=== PATIENT | female | born 1955 | race Caucasian/White ===

== ENCOUNTER 2022-08-03 17:36 | Emergency (ER) | payer OTHER ==
--- OUTSIDE RECORDS SUMMARY | 2022-08-03 17:40 | XMS REPORT | Continuity of Care Document ---
:1955 Author Organization [facility] t Address [address] [place] [address] [address] [place] [address] Care Team Providers Name Role Phone Nabil Vogt Attending Clinician Unavailable Veda Maxwell Attending Clinician Unavailable SERGIO DAI Attending Clinician Unavailable Sergio Dai MD Attending Clinician Maureen Montoya MD Attending Clinician Subhash Harding MD Attending Clinician SERGIO DAI Admitting Clinician Unavailable Payers Payer Name Policy Type Policy Number Effective Date Expiration Date Mark leigh AETNA 53 [id number] 2017 [facility] 00:00:00 [facility] MEDICARE A B [id number] 2020 00:00:00 AETNA HMO POS [id number] 2020 QPOS 00:00:00 AETNA 53 [id number] 2021 [facility] 00:00:00 [facility] AETNA 53 [id number] 2017 [facility] 00:00:00 [facility] Problems Condition Condition Condition Status Onset Resolution Last Treating Co mments Source Name Details Category Date Date Treatment Clinician Date Renal mass Renal mass Disease Active [facility] 03-08 kes 00:00: Medical 00 [place] [id number] GERD Problem Common without Spirit esophagiti - [facility] [id number] S/P Problem Common laparoscop Spirit ic surgery - [facility] [id number] Daytime Problem Comm on 00 somnolence [facility] [id number] Snoring Problem Common [facility] [id number] Fatigue, Problem Commo n unspecifie Spirit d type [facility] [id number] History of Problem Co mmon basal cell [facility] carcinoma - [facility] (B[facility]) of [facility] Jazz-Staci Jazz-Staci Problem C ommon latter's latter's Spirit disease of disease of - [facility] left lower left lower [facility] [id number] [place] [address] left knee [facility] Swelling Swelling Problem Commo n [facility] Gastroesop Reflux Problem Commo n hageal Spirit reflux - [facility] disease [facility] [id number] Pain in Problem Common right knee [facility] [id number] Low back Problem Comm on pain [facility] Seasonal Seasonal Problem Commo n allergy allergies [facility] [id number] [place] Problem Com mon latter's Spirit disease of - [facility] left lower [facility] [id number] Morbid Problem Common obesity [facility] [id number] Body mass Problem Com mon index [facility] (BMI) [facility] 45.0-49.9[facility] Anxiety Anxiety Problem Common [facility] [id number] Tinnitus Problem Com mon 102 of both [facility] ears [facility] [id number] Neck pain Problem Comm on [facility] [id number] Dizziness Problem Com mon [facility] Allergic Allergic Problem Commo n rhinitis rhinitis, Spiri t unspecifie - [facility] d [facility] y, Medical unspecifie Center d trigger Sinus Sinus Problem Common problem problem [facility] [id number] History of Problem Co mmon fall [facility] [id number] Other Problem Common chronic [facility] pain [facility] [id number] Chronic Problem Commo n pain Spirit syndrome [facility] [id number] Tear of Problem Commo n meniscus Spirit of knee, - [facility] unspecifie [facility] laterality Medica l , Center unspecifie d meniscus, unspecifie d tear type, unspecifie d whether old or current tear, sequela [id number] Essential Problem Comm on hypertensi Spirit on [facility] [id number] Osteoporos Problem Com mon is without Spirit current - [facility] pathologic [facility] fracture, Medical unspecifie Center d osteoporos is type [id number] Adult BMI Problem Com mon 38.0-38.9 Spirit kg/sq m - [facility] Allergies, Adverse Reactions, Alerts Allergy Allergy Status Severity Reaction(s) Onset Inactive Treating Comm ents Source Name Type Date Date Clinician NO KNOWN Allergy Active [facility] Social History Social Habit Start Date Stop Date Quantity Comments Source History of [facility] - Tobacco Use [facility] Alcohol intake 2022-03-09 2022-03-09 .14 /d [facility] 00:[facility]00 00:00:00 [facility] Alcohol Comment 2022-02-18 2022-02-[address] [facility] kes 00:00:00 00:00:00 [facility] Tobacco use and 2022-02-18 2022-02-18 Sm[address] [facility] exposure 00:00:00 00:00:00 non-user [facility] Sex Assigned At 1955 [address] [facility] kes 00:00:00 00:00:00 [facility] Smoking Status Start Date Stop Date Source Never smoked tobacco [facility] Medications Ordered Filled Start Stop Current Ordering Indication Dosage Frequency Signature Comments Components Source Medication Medication Date Date Medication? Clinician (SIG) Name Name lidocaine 2022- No 1{patch Q24H Place [address] (LIDODERM) 03-12 } patch onto Kayla kes 5 % patch 00:00: 23:59 the skin Med ical 00 :00 daily for [place] 10 days Remove & Discard patch within 12 hours or as directed by . enalapril Yes .5mg QD Take 0.[address] maleate 1-12 mg by Juan (VASOTEC 17:56: mouth Medical ORAL) 52 nightly. Center gabapentin Yes 100mg QD Take [address] (NEURONTIN) 1-12 mg [facility] 100 MG 17:56: mouth Medical capsule 52 daily. Center alendronate Yes 70mg Take [address] (FOSAMAX) -12 by [facility] 70 MG 17:56: every 7 Medical tablet 52 days Take Center in the morning with a full glass of water, on an empty stomach, and do not take anything else by mouth or lie down for the next 30 min. . celecoxib Yes 200mg Take [address] (CeleBREX) 1-12 mg [facility] 200 MG 17:56: mouth Medical capsule 52 every 12 Center (twelve) hours as needed for Pain . omeprazole 0 Yes QD Take by [facility] magnesium 1-12 [facility] (PRILOSEC 17:56: daily. Medica l ORAL) 52 Center docusate Yes 100mg Take [address] sodium 1-12 mg by [facility] (COLACE) 17:56: mouth as Medic al 100 MG 52 needed for Center capsule Constipati on. BIOTIN ORAL Yes QD Take by [facility] 1-12 [facility] 17:56: daily. Medical 52 [place] multivitami Yes 1{tbl} QD Take [address] n per 12 tablet by [facility] tablet 17:56: mouth Medical 52 daily. [place] acetaminoph 2022- No 1000mg Take [address] en 03-11-22 tablets [facility] (TYLENOL) 00:00: 23:59 (1,000 mg Me dical 500 MG 00 :00 total) by Center tablet mouth every 6 (six) hours for 10 days. methocarbam 2022- No 500mg Q.25D Take [address] oL 1,000 mg 03-11-17 mg [facility] Tab 00:00: 23:59 mouth 4 Medical 00 :00 (four) Center times daily for 5 days. traMADoL 2022- No 50mg Take [address] (ULTRAM) 50 03-11-15 tablet (50 L ukes mg tablet 00:00: 23:59 mg total) Me dical 00 :00 by mouth Center every 8 (eight) hours as needed for Pain (for breakthrou gh pain) for up to 3 days. Max Daily Amount: 150 mg Gabapentin Gabapentin 2022-1 No 1{capsu QD Gabapentin 100 MG 100 MG 0-14 le} 100 MG 00:00: 00 Gabapentin Gabapentin 2021-02 No 1{capsu QD Gabapentin 100 MG 100 MG 0-14 le} 100 MG 00:00: 00 Gabapentin Gabapentin 2021-02 No 1{capsu QD Gabapentin 100 MG 100 MG 0-14 le} 100 MG 00:00: 00 Lomaira 8 Lomaira 8 0 2021- No TID Lomaira 8 MG MG 08-06-09 MG 00:00: 00:00 00 :00 Lomaira 8 Lomaira 8 0 2021- No TID Lomaira 8 MG MG 08-06- MG 00:00: 00:00 00 :00 Enalapril Enalapril Yes Veda 1 tablet Common Maleate Maleate 1-21 Millender Spir it 00:00: - [facility]I 00 [facility] Alendronate Alendronate Yes Veda 1 tablet Common Sodium Sodium Millender 30 minutes Spirit before the - [facility] first [facility] Medical or [place] medicine of the day with plain water Biotin Biotin Yes Veda as Common Millender directed Spirit [facility] Tramadol Tramadol Yes Veda 1 tablet Co mmon HCl HCl Millender as needed Spiri t - [facility] Ibuprofen Ibuprofen Yes Veda 1 tablet Common Millender with food Spiri t or milk as - CHI needed [facility] Multivitami Multivitami Yes Veda not Common n n Millender defined [facility] Alendronate Alendronate No Alendronat Sodium 70 Sodium 70 e Sodium MG MG 70 MG Enalapril Enalapril No 1{table QD Enalapril Maleate 10 Maleate 10 t} Maleate 10 MG MG MG Wegovy 1 Wegovy 1 No .5{ml} Wegovy 1 MG/0.5ML MG/0.5ML MG/0.5ML Enalapril Enalapril No 1{table QD Enalapril Maleate 10 Maleate 10 t} Maleate 10 MG MG MG Alendronate Alendronate No Alendronat Sodium 70 Sodium 70 e Sodium MG MG 70 MG Pen Ward Pen Ward No Pen 32G X 6 MM 32G X 6 MM Ward 32G X 6 MM Wegovy 1 Wegovy 1 No .5{ml} Wegovy 1 MG/0.5ML MG/0.5ML MG/0.5ML Enalapril Enalapril No 1{table QD Enalapril Maleate 10 Maleate 10 t} Maleate 10 MG MG MG Alendronate Alendronate No Alendronat Sodium 70 Sodium 70 e Sodium MG MG 70 MG Pen Ward Pen Ward No Pen 32G X 6 MM 32G X 6 MM Ward 32G X 6 MM Wegovy 1 Wegovy 1 No .5{ml} Wegovy 1 MG/0.5ML MG/0.5ML MG/0.5ML Enalapril Enalapril No 1{table QD Enalapril Maleate 10 Maleate 10 t} Maleate 10 MG MG MG Alendronate Alendronate No Alendronat Sodium 70 Sodium 70 e Sodium MG MG 70 MG Pen Ward Pen Ward No Pen 32G X 6 MM 32G X 6 MM Ward 32G X 6 MM Alendronate Alendronate No Alendronat Sodium 70 Sodium 70 e Sodium MG MG 70 MG Wegovy 1 Wegovy 1 No .5{ml} Wegovy 1 MG/0.5ML MG/0.5ML MG/0.5ML Pen Ward Pen Ward No Pen 32G X 6 MM 32G X 6 MM Ward 32G X 6 MM Alendronate Alendronate No Alendronat Sodium 70 Sodium 70 e Sodium MG MG 70 MG Enalapril Enalapril No 1{table QD Enalapril Maleate 5 Maleate 5 t} Maleate 5 MG MG MG Alendronate Alendronate No Alendronat Sodium 70 Sodium 70 e Sodium MG MG 70 MG Wegovy 1 Wegovy 1 No .5{ml} Wegovy 1 MG/0.5ML MG/0.5ML MG/0.5ML Pen Ward Pen Ward No Pen 32G X 6 MM 32G X 6 MM Ward 32G X 6 MM Alendronate Alendronate No Alendronat Sodium 70 Sodium 70 e Sodium MG MG 70 MG Enalapril Enalapril No 1{table QD Enalapril Maleate 5 Maleate 5 t} Maleate 5 MG MG MG Pen Ward Pen Ward No Pen 32G X 6 MM 32G X 6 MM Ward 32G X 6 MM Wegovy 1 Wegovy 1 No .5{ml} Wegovy 1 MG/0.5ML MG/0.5ML MG/0.5ML Enalapril Enalapril No 1{table QD Enalapril Maleate 5 Maleate 5 t} Maleate 5 MG MG MG Alendronate Alendronate No Alendronat Sodium 70 Sodium 70 e Sodium MG MG 70 MG Pen Ward Pen Ward No Pen 32G X 6 MM 32G X 6 MM Ward 32G X 6 MM Wegovy 1 Wegovy 1 No .5{ml} Wegovy 1 MG/0.5ML MG/0.5ML MG/0.5ML Enalapril Enalapril No 1{table QD Enalapril Maleate 5 Maleate 5 t} Maleate 5 MG MG MG Alendronate Alendronate No Alendronat Sodium 70 Sodium 70 e Sodium MG MG 70 MG Enalapril Enalapril No 1{table QD Enalapril Maleate 5 Maleate 5 t} Maleate 5 MG MG MG Wegovy 1 Wegovy 1 No .5{ml} Wegovy 1 MG/0.5ML MG/0.5ML MG/0.5ML Gabapentin Gabapentin No Gabapentin Alendronate Alendronate No Alendronat Sodium 70 Sodium 70 e Sodium MG MG 70 MG Alendronate Alendronate No Alendronat Sodium 70 Sodium 70 e Sodium MG MG 70 MG Pen Ward Pen Ward No Pen 32G X 6 MM 32G X 6 MM Ward 32G X 6 MM Pen Ward Pen Ward No Pen 32G X 6 MM 32G X 6 MM Ward 32G X 6 MM Alendronate Alendronate No Alendronat Sodium 70 Sodium 70 e Sodium MG MG 70 MG Gabapentin Gabapentin No Gabapentin Enalapril Enalapril No 1{table QD Enalapril Maleate 5 Maleate 5 t} Maleate 5 MG MG MG Wegovy 1 Wegovy 1 No .5{ml} Wegovy 1 MG/0.5ML MG/0.5ML MG/0.5ML Alendronate Alendronate No Alendronat Sodium 70 Sodium 70 e Sodium MG MG 70 MG Pen Ward Pen Ward No Pen 32G X 6 MM 32G X 6 MM Ward 32G X 6 MM Alendronate Alendronate No Alendronat Sodium 70 Sodium 70 e Sodium MG MG 70 MG Gabapentin Gabapentin No Gabapentin Enalapril Enalapril No 1{table QD Enalapril Maleate 5 Maleate 5 t} Maleate 5 MG MG MG Wegovy 1 Wegovy 1 No .5{ml} Wegovy 1 MG/0.5ML MG/0.5ML MG/0.5ML Gabapentin Gabapentin No Gabapentin Gabapentin Gabapentin No 1{capsu QD Gabapentin 100 MG 100 MG le} 100 MG Alendronate Alendronate No Alendronat Sodium 70 Sodium 70 e Sodium MG MG 70 MG Pen Ward Pen Ward No Pen 32G X 6 MM 32G X 6 MM Ward 32G X 6 MM Alendronate Alendronate No Alendronat Sodium 70 Sodium 70 e Sodium MG MG 70 MG Enalapril Enalapril No 1{table QD Enalapril Maleate 5 Maleate 5 t} Maleate 5 MG MG MG Wegovy 1 Wegovy 1 No .5{ml} Wegovy 1 MG/0.5ML MG/0.5ML MG/0.5ML Gabapentin Gabapentin No Gabapentin Gabapentin Gabapentin No 1{capsu QD Gabapentin 100 MG 100 MG le} 100 MG Alendronate Alendronate No Alendronat Sodium 70 Sodium 70 e Sodium MG MG 70 MG Wegovy 1 Wegovy 1 No .5{ml} Wegovy 1 MG/0.5ML MG/0.5ML MG/0.5ML Pen Ward Pen Ward No Pen 32G X 6 MM 32G X 6 MM Ward 32G X 6 MM Enalapril Enalapril No 1{table QD Enalapril Maleate 5 Maleate 5 t} Maleate 5 MG MG MG Alendronate Alendronate No Alendronat Sodium 70 Sodium 70 e Sodium MG MG 70 MG Alendronate Alendronate No Alendronat Sodium 70 Sodium 70 e Sodium MG MG 70 MG Gabapentin Gabapentin No Gabapentin Pen Ward Pen Ward No Pen 32G X 6 MM 32G X 6 MM Ward 32G X 6 MM Gabapentin Gabapentin No 1{capsu QD Gabapentin 100 MG 100 MG le} 100 MG Enalapril Enalapril No 1{table QD Enalapril Maleate 5 Maleate 5 t} Maleate 5 MG MG MG Wegovy 1 Wegovy 1 No .5{ml} Wegovy 1 MG/0.5ML MG/0.5ML MG/0.5ML Alendronate Alendronate No Alendronat Sodium 70 Sodium 70 e Sodium MG MG 70 MG Gabapentin Gabapentin No Gabapentin Pen Ward Pen Ward No Pen 32G X 6 MM 32G X 6 MM Ward 32G X 6 MM Gabapentin Gabapentin No 1{capsu QD Gabapentin 100 MG 100 MG le} 100 MG Enalapril Enalapril No 1{table QD Enalapril Maleate 5 Maleate 5 t} Maleate 5 MG MG MG Wegovy 1 Wegovy 1 No .5{ml} Wegovy 1 MG/0.5ML MG/0.5ML MG/0.5ML Pen Ward Pen Ward No Pen 32G X 6 MM 32G X 6 MM Ward 32G X 6 MM Wegovy 1 Wegovy 1 No .5{ml} Wegovy 1 MG/0.5ML MG/0.5ML MG/0.5ML Enalapril Enalapril No 1{table QD Enalapril Maleate 5 Maleate 5 t} Maleate 5 MG MG MG Alendronate Alendronate No Alendronat Sodium 70 Sodium 70 e Sodium MG MG 70 MG Multivitami Multivitami No QD Multivitam n n in Enalapril Enalapril No Enalapril Maleate 10 Maleate 10 Maleate 10 mg mg mg Biotin 400 Biotin 400 No Biotin 400 MCG MCG MCG Ibuprofen Ibuprofen No Ibuprofen 400 MG 400 MG 400 MG Alendronate Alendronate No Alendronat Sodium 70 Sodium 70 e Sodium MG MG 70 MG Alendronate Alendronate No Alendronat Sodium 70 Sodium 70 e Sodium MG MG 70 MG Enalapril Enalapril No 1{table QD Enalapril Maleate 10 Maleate 10 t} Maleate 10 MG MG MG Immunizations Ordered Immunization Filled Immunization Date Status Commen ts Source Name Name Flucelvax - single Flucelvax - single 2018-12-06 Completed [facility] dose syringe dose syringe 15:25:00 - [facility] Flucelvax - single Flucelvax - single 2018-12-06 Completed [facility] dose syringe dose syringe 15:25:00 - [facility] Flucelvax - single Flucelvax - single 2018-12-06 Completed [facility] dose syringe dose syringe 15:25:00 - [facility] Flucelvax - single Flucelvax - single 2018-12-06 Completed [facility] dose syringe dose syringe 15:25:00 - [facility] Flucelvax - single Flucelvax - single 2018-12-06 Completed [facility] dose syringe dose syringe 15:25:00 - [facility] Flucelvax - single Flucelvax - single 2018-12-06 Completed [facility] dose syringe dose syringe 15:25:00 - [facility] Flucelvax - single Flucelvax - single 2018-12-06 Completed [facility] dose syringe dose syringe 15:25:00 - [facility] Flucelvax - single Flucelvax - single 2018-12-06 Completed [facility] dose syringe dose syringe 15:25:00 - [facility] Flucelvax - single Flucelvax - single 2018-12-06 Completed [facility] dose syringe dose syringe 15:25:00 - [facility] Flucelvax - single Flucelvax - single 2018-12-06 Completed [facility] dose syringe dose syringe 15:25:00 - [facility] Flucelvax - single Flucelvax - single 2018-12-06 Completed [facility] dose syringe dose syringe 15:25:00 - [facility] Flucelvax - single Flucelvax - single 2018-12-06 Completed [facility] dose syringe dose syringe 15:25:00 - [facility] Flucelvax - single Flucelvax - single 2018-12-06 Completed [facility] dose syringe dose syringe 15:25:00 - [facility] Flucelvax - single Flucelvax - single 2018-12-06 Completed [facility] dose syringe dose syringe 15:25:00 - [facility] Flucelvax - single Flucelvax - single 2018-12-06 Completed [facility] dose syringe dose syringe 15:25:00 - [facility] Flucelvax - single Flucelvax - single 2018-12-06 Completed [facility] dose syringe dose syringe 15:25:00 - [facility] Flucelvax - single Flucelvax - single 2018-12-06 Completed [facility] dose syringe dose syringe 15:25:00 - [facility] Flucelvax - single Flucelvax - single 2018-12-06 Completed [facility] dose syringe dose syringe 15:25:00 - [facility] Flucelvax - single Flucelvax - single 2018-12-06 Completed [facility] dose syringe dose syringe 00:00:00 - [facility] Vital Signs Vital Name Observation Time Observation Value Comments Source height 2022-03-17 11:45:00 62.50 [in_i] [facility] weight 2022-03-17 11:45:00 219.8 [lb_av] [facility] temperature 2022-03-17 11:45:00 98.2 [degF] [facility] bmi 2022-03-17 11:45:00 39.56 kg/m2 [facility] oximetry 2022-03-17 11:45:00 98 % [facility] respiratory rate 2022-03-17 11:45:00 18 /min Comm on [facility] blood pressure 2022-03-17 11:45:00 134 mm[Hg] [facility] - systolic [facility] blood pressure 2022-03-17 11:45:00 66 mm[Hg] [facility] - diastolic [facility] WEIGHT 2022-03-08 10:54:00 97.977 kg HEIGHT 2022-03-08 10:54:00 162.6 cm HEIGHT 2022-02-18 12:18:00 162.6 cm WEIGHT 2022-02-18 12:18:00 97.523 kg WEIGHT 2022-03-08 10:54:00 97.977 kg HEIGHT 2022-03-08 10:54:00 162.6 cm HEIGHT 2022-02-18 12:18:00 162.6 cm WEIGHT 2022-02-18 12:18:00 97.523 kg WEIGHT 2022-03-08 10:54:00 97.977 kg HEIGHT 2022-03-08 10:54:00 162.6 cm HEIGHT 2022-02-18 12:18:00 162.6 cm WEIGHT 2022-02-18 12:18:00 97.523 kg height 2022-02-04 13:30:00 62.50 [in_i] [facility] weight 2022-02-04 13:30:00 218.8 [lb_av] [facility] temperature 2022-02-04 13:30:00 97.3 [degF] [facility] bmi 2022-02-04 13:30:00 39.38 kg/m2 [facility] oximetry 2022-02-04 13:30:00 97 % [facility] respiratory rate 2022-02-04 13:30:00 17 /min Comm on [facility] blood pressure 2022-02-04 13:30:00 135 mm[Hg] [facility] - systolic [facility] blood pressure 2022-02-04 13:30:00 76 mm[Hg] [facility] diastolic [facility] height 2022-01-13 09:20:00 62.50 [in_i] [facility] weight 2022-01-13 09:20:00 218.8 [lb_av] [facility] temperature 2022-01-13 09:20:00 97.0 [degF] [facility] bmi 2022-01-13 09:20:00 39.38 kg/m2 [facility] oximetry 2022-01-13 09:20:00 97 % [facility] respiratory rate 2022-01-13 09:20:00 17 /min Comm on [facility] blood pressure 2022-01-13 09:20:00 127 mm[Hg] [facility] - systolic [facility] blood pressure 2022-01-13 09:20:00 62 mm[Hg] [facility] - diastolic [facility] height 2022-01-06 16:45:00 62.50 [in_i] [facility] weight 2022-01-06 16:45:00 218.4 [lb_av] Common [facility] temperature 2022-01-06 16:45:00 98.4 [degF] Common S pirit [facility] bmi 2022-01-06 16:45:00 39.31 kg/m2 Common S pirit [facility] oximetry 2022-01-06 16:45:00 97 % Common [facility] respiratory rate 2022-01-06 16:45:00 18 /min Comm on [facility] blood pressure 2022-01-06 16:45:00 124 mm[Hg] [facility] - systolic [facility] blood pressure 2022-01-06 16:45:00 65 mm[Hg] Common [facility] - diastolic [facility] height 2021-12-11 08:30:00 62.50 [in_i] Common [facility] weight 2021-12-11 08:30:00 218.0 [lb_av] [facility] temperature 2021-12-11 08:30:00 97.3 [degF] Common S pirit [facility] bmi 2021-12-11 08:30:00 39.23 kg/m2 Common S pirit [facility] oximetry 2021-12-11 08:30:00 99 % Common [facility] respiratory rate 2021-12-11 08:30:00 18 /min Comm on [facility] blood pressure 2021-12-11 08:30:00 126 mm[Hg] Common [facility] - systolic [facility] blood pressure 2021-12-11 08:30:00 77 mm[Hg] [facility] - diastolic [facility] height 2021-08-06 07:50:00 62.50 [in_i] Common S pirit - [facility] weight 2021-08-06 07:50:00 214 [lb_av] [facility]irit [facility] temperature 2021-08-06 07:50:00 97 [degF] Common [facility]irit [facility] bmi 2021-08-06 07:50:00 38.51 kg/m2 Common S [facility]irit [facility] blood pressure 2021-08-06 07:50:00 110 mm[Hg] [facility] - systolic [facility] blood pressure 2021-08-06 07:50:00 70 mm[Hg] [facility] - diastolic [facility] height 2021-07-08 07:50:00 62.50 [in_i] [facility] weight 2021-07-08 07:50:00 214 [lb_av] [facility] temperature 2021-07-08 07:50:00 97 [degF] Common S pirit [facility] bmi 2021-07-08 07:50:00 38.51 kg/m2 Common S [facility]irit [facility] blood pressure 2021-07-08 07:50:00 122 mm[Hg] [facility] - systolic [facility] blood pressure 2021-07-08 07:50:00 62 mm[Hg] [facility] - diastolic [facility] height 2021-05-19 11:00:00 62.50 [in_i] [facility] weight 2021-05-19 11:00:00 216.5 [lb_av] [facility] temperature 2021-05-19 11:00:00 98.2 [degF] Common [facility]irit [facility] bmi 2021-05-19 11:00:00 38.96 kg/m2 [facility] oximetry 2021-05-19 11:00:00 100 % [facility] respiratory rate 2021-05-19 11:00:00 17 /min Comm on [facility] blood pressure 2021-05-19 11:00:00 116 mm[Hg] Common [facility] - systolic [facility] blood pressure 2021-05-19 11:00:00 65 mm[Hg] [facility] - diastolic [facility] height 2021-05-19 10:40:00 62.50 [in_i] [facility] weight 2021-05-19 10:40:00 216.5 [lb_av] [facility] temperature 2021-05-19 10:40:00 98.2 [degF] [facility] bmi 2021-05-19 10:40:00 38.96 kg/m2 [facility] oximetry 2021-05-19 10:40:00 100 % [facility] respiratory rate 2021-05-19 10:40:00 17 /min Comm on [facility] blood pressure 2021-05-19 10:40:00 116 mm[Hg] [facility] - systolic [facility] [facility] blood pressure 2021-05-19 10:40:00 65 mm[Hg] [facility] diastolic [facility] Heart rate 2022-03-11 12:18:24 77 /min [facility] Respiratory rate 2022-03-11 12:18:24 18 /min [facility] Oxygen saturation in 2022-03-11 12:18:24 99 /min [facility] Arterial blood by Medical Ce nter Pulse oximetry Body temperature 2022-03-11 12:17:48 36.61 Etelvina [facility] Systolic blood 2022-03-11 12:17:15 123 mm[Hg] [facility] Diastolic blood 2022-03-11 12:17:15 75 mm[Hg] [facility] Body height 2022-03-08 10:54:00 162.6 cm [facility] Body weight 2022-03-08 10:54:00 97.977 kg [facility] BMI 2022-03-08 10:54:00 37.08 kg/m2 [facility] Procedures Procedure Date / Time Performed Performing Clinician [facility] e CTA ABDOMEN AAA PROTOCOL 2022-03-11 13:31:00 Atiya [facility] CTA PELVIS AAA PROTOCOL 2022-03-11 13:31:00 Atiya [facility] CBC W/PLT COUNT & AUTO 2022-03-11 07:58:00 Markell [facility] CBC W/PLT COUNT & AUTO 2022-03-11 07:58:[facility] 2022-03-11 03:54:00 [facility] HEMOGLOBIN AND 2022-03-11 03:54:00 [facility] BASIC METABOLIC PANEL 2022-03-10 05:10:00 [facility] HEMOGLOBIN AND 2022-03-10 05:09:00 [facility] BASIC METABOLIC PANEL 2022-03-09 06:02:00 [facility] HEMOGLOBIN AND 2022-03-09 06:02:00 [facility] BASIC METABOLIC PANEL 2022-03-08 20:22:00 [facility] HEMOGLOBIN AND 2022-03-08 20:22:00 [facility] TISSUE EXAM 2022-03-08 17:39:00 Malaika [facility] ROBOTIC 2022-03-08 13:36:00 Malaika [facility] LAPAROSCOPY,NEPHRECTOMY- [facility] PARTIAL PROCEDURE W/ DAVINCI XI 2022-03-08 13:36:00 Malaika [facility] PREPARE RBC 2022-03-08 12:27:00 Malaika [facility] ABORH, MANUAL 2022-03-08 11:39:00 Susan Ruiz [facility] TYPE AND SCREEN, 2022-03-08 11:22:00 Markell [facility] UROLOGY REPORT - SCAN 2022-03-08 00:00:00 Provider, Default [facility] Scanning [facility] Plan of Care Planned Activity Planned Date Details Comments Source Future Scheduled 2023-03-[address] [facility] Test 00:00:00 Counseling and Medical Cente r Screening (12+) [code = Tobacco Cessation Counseling and Screening (12+)] Future Scheduled 2022-10-[address] [facility] Test 00:00:00 (Season Ended) [code = Medic al Center INFLUENZA VACCINE (Season Ended)] Future Scheduled 2022-02-[address] [facility] Test 00:00:00 (12+) [code = Medical Center DEPRESSION SCREENING (12+)] Future Scheduled 2022-02-28 FALLS RISK SCREENING [facility] Test 00:00:00 [code = FALLS RISK Medical C enter SCREENING] Future Scheduled 2021-07-[address] [facility] 00:00:00 WELLNESS (YEAR 2 or Medical Center FIRST YEAR if no IPPE) [code = MEDICARE ANNUAL WELLNESS (YEAR 2 or FIRST YEAR if no IPPE)] Future Scheduled 2020-08-04 PNEUMOCOCCAL 65+ YRS ([address] [facility] Test 00:00:00 - PCV) [code = Medical Cente r PNEUMOCOCCAL 65+ YRS (1 - PCV)] Future Scheduled 2020-06-28 COVID-19 VACCINE (3 - [facility] 00:00:00 Booster for [facility] series) [code = COVID-19 VACCINE (3 - Booster for [employer] series)] Future Scheduled 2005-08-04 SHINGLES VACCINES ([address] [facility] Test 00:00:00 2) [code = SHINGLES [facility] VACCINES (1 of 2)] Future Scheduled 1974-08-04 DTAP/TDAP/TD VACCINES [facility] 00:00:00 (1 - Tdap) [code = Medical C enter DTAP/TDAP/TD VACCINES (1 - Tdap)] Future Scheduled 1973-08-04 HEPATITIS C SCREENING [facility] 00:00:00 [code = HEPATITIS C Medical Center SCREENING] Future Scheduled 1955 Screening for malignant [facility] Test 00:00:00 neoplasm of breast Medical C enter (procedure) [code = 652517922] Future Scheduled 1955 CT Colonography (combo) [facility] Test 00:00:00 [code = CT Colonography [facility] (combo)] Future Scheduled 1955 Screening for malignant [facility] Test 00:00:00 neoplasm of colon Medical Ce nter (procedure) [code = 243959190] Future Scheduled 1955 Screening for malignant [facility] Test 00:00:00 neoplasm of colon Medical Ce nter (procedure) [code = 358067413] Future Scheduled 1955 DXA SCAN [code = DXA [facility] Test 00:00:00 SCAN] [facility] Future Scheduled 1955 Screening for malignant [facility] Test 00:00:00 neoplasm of colon Medical Ce nter (procedure) [code = 783194826] Future Scheduled 1955 Screening for malignant [facility] Test 00:00:00 neoplasm of colon Medical Ce nter (procedure) [code = 872723949] Future Scheduled 1955 Sigmoidoscopy [code = [facility] 00:00:00 Sigmoidoscopy] Medical [facility] Encounters Start End Encounter Admission Attending Care Care Encounter Source Date/Time Date/Time Type Type Clinicians Facility Department ID 2022-03-15 [facility] [id number] Common 07:40:00 Nabil 54577 [facility] 2022-02-03 Outpatient Vogt, STLMLC STLC [id number] Common 11:42:01 Nabil 96333 [facility] 2022-01-11 Outpatient Vogt, STLMLC STLC [id number] Common 11:19:01 Nabil 41678 [facility] 2021-12-23 Outpatient Vogt, STLMLC STLC [id number] Common 11:08:00 Nabil [facility] 2021-12-14 Outpatient Vogt, STLMLC STLC [id number] Common 10:40:00 Nabil [facility] 2021-12-10 Outpatient Vogt, STLC STLC [id number] Common 15:19:00 Nabil 16235 [facility] 2021-05-19 Outpatient Vogt, STLMLC STLMLC [id number] Common 10:40:01 Nabil [facility] 2021-05-18 Outpatient Vogt, STLMLC STLMLC [id number] Common 11:35:00 [facility] 2021-03-25 Outpatient Vogt, STLMLC STLMLC [id number] Common 13:52:44 [facility] [id number] [facility] 2021-03-25 Outpatient Vogt, STLMLC STLMLC [id number] Common 13:51:30 Nabil 96247 [facility] 2021-03-25 Outpatient STLMLC STLMLC [id number] Common 12:44:11 [id number] [facility] 2021-03-25 Outpatient STLMLC STLMLC [id number] Common 12:33:39 [id number] [facility] 2021-03-25 Outpatient STLMLC STLMLC [id number] Common 12:32:44 [id number] [facility] 2021-03-25 Outpatient STLMLC STLMLC [id number] Common 12:05:14 [id number] [facility] 2021-03-25 Outpatient Millender, STLMLC STLMLC [id number] 11:02:09 Veda 50475 [facility] 2022-03-17 2022-03-17 Postop STLMLC STLMLC [id number] Co mmon 00:00:00 00:00:00 visit [facility] 2022-03-12 2022-03-12 (TEL) STLMLC STLMLC [id number] Co mmon 00:00:00 00:00:00 [facility] 2022-03-08 2022-03-11 Inpatient EL MALAIKA [facility] Surgery [id number] [facility] 13:12:00 17:56:00 [place] 2022-03-08 2022-03-[address] [facility] [address] [facility] [place] [place] [id number] [facility] 13:12:00 17:56:00 Encounter [facility] 2022-03-08 2022-03-08 Outpatient [place] BC [id number] [facility] 13:12:00 23:59:00 [facility] 2022-03-08 2022-03-08 Anesthesia Maureen Montoya [facility] [id number] 13:36:00 20:14:00 Event MeaghanOscarny [facility] 2022-03-08 2022-03-08 Surgery Malaika, [facility] [id number] 13:22:00 17:52:00 [facility] 2022-03-08 2022-03-08 Outpatient BC BC [id number] [facility] 00:00:00 13:11:00 [facility] 2022-03-08 2022-03-08 Travel [facility] [id number] [facility] 00:00:00 00:00:00 [facility] 2022-02-18 2022-02-18 [facility] [id number] [facility] 00:00:00 00:00:00 SERGIO 2022-02-18 2022-02-18 Travel [facility] [id number] [facility] 00:[facility]00 00:00:00 [facility] 2022-02-04 2022-02-04 OFFICE STLC STLC [id number] Co mmon 00:00:00 00:00:00 VISIT [facility] ESTAB PT - CHI LEVEL 4 [facility] 2022-01-13 2022-01-13 [facility]ICE [facility] [id number] Co mmon 00:00:00 00:00:00 VISIT [facility] ESTAB PT - [facility]I LEVEL 4 [facility] 2022-01-11 2022-01-11 (TEL) STLMLC STLMLC [id number] Co mmon 00:00:00 00:00:00 [facility] - [facility] 2022-01-06 2022-01-06 OFFICE STLC STLC [id number] Co mmon 00:00:00 00:00:00 VISIT LEYDA Lei it PT LEVEL 3 - [facility] 2021-12-11 2021-12-11 OFFICE STLMLC STLMLC [id number] Co mmon 00:00:00 00:00:00 VISIT [facility] ESTAB PT - [facility]I LEVEL 4 [facility] 2021-12-07 2021-12-07 (TEL) STLMLC STLMLC [id number] Co mmon 00:00:00 00:00:00 [facility] - [facility] 2021-12-07 2021-12-07 (TEL) STLMLC STLMLC [id number] Co mmon 00:00:00 00:00:00 [facility] 2021-08-15 2021-08-15 (TEL) STLMLC STLMLC [id number] Co mmon 00:00:00 00:00:00 [facility] 2021-08-06 2021-08-06 OFFICE STLMLC STLMLC [id number] Co mmon 00:00:00 00:00:00 VISIT [facility] ESTAB PT - CHI LEVEL 4 [facility] 2021-07-20 2021-07-20 (TEL) STLMLC STLMLC [id number] Co mmon 00:00:00 00:00:00 [facility] 2021-07-13 2021-07-13 (TEL) STLMLC STLMLC [id number] Co mmon 00:00:00 00:00:00 [facility] - [facility] 2021-07-08 2021-07-08 OFFICE STLMLC STLMLC [id number] Co mmon 00:00:00 00:00:00 VISIT [facility] ESTAB PT - [facility]I LEVEL 4 [facility] 2021-05-19 2021-05-19 WELCOME TO STLMLC STLMLC [id number] Common 00:00:00 00:00:00 MEDICARE Spiri t PREV PHY - CHI EXAM [facility] 2021-05-19 2021-05-19 OFFICE STLMLC STLMLC [id number] Co mmon 00:00:00 00:00:00 VISIT [facility] ESTAB PT - [facility]I LEVEL 4 [facility] 2021-04-22 2021-04-22 (TEL) STLMLC STLMLC [id number] Co mmon 00:00:00 00:00:00 [facility] 2020-11-19 2020-11-19 Outpatient STLMLC STLMLC [id number] Common 00:00:00 00:00:00 [facility] 2020-05-21 2020-05-21 Outpatient STLMLC STLMLC [id number] Common 00:00:00 00:00:00 [facility] 2020-05-19 2020-05-19 Outpatient STLMLC STLMLC [id number] Common 00:00:00 00:00:00 [facility] 2020-04-23 2020-04-23 Outpatient STLMLC STLMLC [id number] Common 00:00:00 00:00:00 [facility] 2020-02-21 2020-02-21 Outpatient STLMLC STLMLC [id number] Common 00:00:00 00:00:00 [facility] 2019-12-12 2019-12-12 Outpatient STLMLC STLMLC [id number] Common 00:00:00 00:00:00 [facility] 2019-06-28 2019-06-28 [facility] [id number] Common 20:56:00 20:56:[address] [facility] [address] [facility] 2019-06-19 2019-06-19 [facility] [id number] Common 10:00:00 10:00:[address] [facility] [address] [facility] 2019-06-04 2019-06-04 [facility] [id number] Common 14:21:00 14:21:[address] [facility] [address] [facility] 2019-05-01 2019-05-01 Out[facility] [id number] Common 09:46:00 09:46:[address] [facility] [address] [facility] 2019-04-18 2019-04-18 [facility] [id number] Common 14:30:00 14:30:[address] [facility] [address] [facility] 2019-04-17 2019-04-17 [facility] [id number] Common 09:45:00 09:45:[address] [facility] 2019-03-26 2019-03-26 [facility] [id number] Common 21:04:00 21:04:[address] [facility] 2019-03-20 2019-03-20 [facility] [id number] Common 11:45:00 11:45:[address] [facility] 2019-02-23 2019-02-23 [facility] [id number] Common 11:28:00 11:28:[address] [facility] 2018-12-18 2018-12-18 [facility] [id number] Common 21:22:00 21:22:[address] [facility] 2018-12-18 2018-12-18 [facility] [id number] Common 09:39:00 09:39:[address] [facility] 2018-12-18 2018-12-18 [facility] [id number] Common 08:20:00 08:20:[address] [facility] 2018-12-10 2018-12-10 [facility] [id number] Common 09:39:00 09:39:[address] [facility] 2018-12-06 2018-12-06 Out[facility] [id number] Common 14:00:00 14:00:[address] [facility] Results Test Description Test Time Test Comments Results Result Comments Source Tissue Exam 2022-04-05 17:41:34 Test Item Value Reference Range Interpretation Comme nts Case Report (test code = 104) Surgical Pathology Report Case: [id number] Authorizing Provider: Sergio Dai MD Collected: 03/08/2022 05:39 PM Ordering Location: [facility] PERIOPERATIVE Received: 03/09/2022 08:25 AM SERVICES Pathologist: Desiree Horn MD Specimens: A) - Tumor, fat overlying tumor B) - Tumor, left renal tumor DIAGNOSIS (test code = 3220) h2xrvZCkZZLug1xfSBDkmDFqFtQzQgOnKtHdVr pc dWMxIHtccnRmMVxlcGljOTYwMlxhbnNpXHNwbHRw W0XxuuchEAlfDY3gBN9kcJhttWIqbTHiZDHaSxVz o2trn976sRWjm6sfQRHCgfdulLj8xCzeI75rc2F3 AspvQ75oxHZyLXO7URXxXREywOTuQLOlGDV2TPPz vVRuU6hqYZBrDG7tuvjtPPniMBevAIAxaMI2RASe lWKzY0PyRDUdKDlvRTFvhoi3XiJyZc3wfJMgvHvi DBunHTGxLEYcABqsYKIlAgYqLF5eG43JWIHSXMMX PNQmISBKIa5IYJYTDDVFAbQxOnCOJD7KMNYAVJeR MaBNVL9MIyHwNACYD0xMXZ1OARZiubg4MFUrEP3S AMBYNMSRSExIT7IHESPUT3SDZPMXZKXQWG0IOCQT RQlNTA1QQEZcJYlGZLESRVhPFasiROQesCWcKKNg FXaKRvKrGmAMWSxyURJRQ7KeSUERC2kAJR2UVTMv fxe7AJLsOBDFAGdPK3CMGMNwM6gIBLTUDY7YENVS LPMAOUNGEsGFHVgITtJQLDQHGDVAK3PHTXWYBeMX ADEQO5GAHZ3BTJRqgcp0MIFnJOMCPbmRE9ATPG9Y RipYApOvTuTAINWVMcUqSg9ZPRKRZ9LrjINwbAfl ccXqQRjkx5KjZHrhVBUdBL9ceWpjJUVpIU1iZSGq S0shiR6qeny7GnGjCURsEtC5SOYmztW3Wih6AZId UZoyp4ogr5XjTGMuUMi1rFuuFvIhCKAgf1yxeeBy BdMiLLGfSHPuEAGkgXCwJ222l4utb5xdjcOkwPK6 HUHeTIJ4XTyvymQddoP9GQiesBLrXyL8CZngeqDn NUvjpjDxhgHdXyj5MGDlQ188MUO5qBgce0uqHOW3 NKRuORYtMuCvJv6vtEZgZ822ZIKbCOFGDLFooPz1 IZUqmkHumyJrcYXQq143T915z5bqTQNwfuDmsZfD duisy4xnG432NGLyhCXmkpWbLvMxJATndYDycAI1 LFLrEW2ohybgUAylVGhoMXIugdD3ACLdtFDfR9Cq IUGsIN1qhxwrEBU3WSqkINUkTRW1KjArXFHff0Sq ltf4MbWfgd3dvr00HEQ5o0LlfQraYGH8QDK4JoYs Bl9afRMdTXLmVW8lGqSarUTqUXJinm97dBubAJwg ZFZ4YEQdeaCmn7Jsi9bgLvKetdMgQ9bmH8YlHIGy VEHcBGFiLnShcmKrn1Fpt2BqpDDlhAw6d4blXSTh PYDmyBpth5lmZDD9YXFzhLQkL0dypI5jHCWwQJ4w qpstx5mxIAbiOKaqYVCjzHQ2beI6SHYgcLTkX5Kp aV2ySBQsEFhwQHJvewe1MwThUq6fbHGzfVzsPTmy YmtwYWdlXHBnbmNvbnRccGduZGVjXHBsYWluXHBs YWluXGYwXGZzMjRccWxcbGFuZzEwMzNcaGljaFxm KGnjKgPpTULlXKdmG3slIuCrFzWeLvk4WQLynCHi EJHeEoc4VFIkpBPyIVBAtUwcrZ3zHHLxlFrvkE7f aUA1KERgatBikFZJpG3bDVXMnU1aDwM2OPBtJqf3 RCL3EhWceNKkoA4= CPT Code(s) (test code = 3357) q9bgfCAvZDEfuEY0TaFmEBUgo7spd2PygAKj cGFy KAuggUJdjqUhhw10oIY5zY87ES4fZBGfHvS9NSCi xaW3Oom7WDAsKRDegZThT416i9thp8lecfXoxKY6 hAvoWBQolideSwH2UMtpNJVafrxsFBd8VNbhRGJb aCF7XNYlnUUkT8SeOFOeTM8muci7GEZ7QRnhOXLu AqO3JPKjnFAyHAXvsNerKZptw216UYI9TaPmUWGj ozKpyVucnI3jAiGfGYG1SQIuSRzsOEXyQHtbUVpm rSLxZEf5EsAzNRPare5= CLINICAL HISTORY (test code = 0823) m7szuURoSJCinGE3OdVzOKHjk2kof1R sdHBncGFy UYndpJQeklZvsn70wDO6bN83LE5vJKKyAyH9PBOr icM6Zlj8CMBgKTPmlKRnG391d6yku6ilozPtfNI6 MUNcKQVsR2DzOT7fHFJqkVIoJ13qgQJtBKC5SAAz UMIvzISsLDRiWUN9ASQppZUpQ9biZMCtWC5mrzhf SGydVNkaLNWshYM3JROklJVlS4VvQGAxTWgsKYCr eki5ChGcTu6nsUSdhRuuJSvkBFSjRFPxMLjggNBx xxwxlqXxUVFfELUCTUD0MENsatBbWE7bq0ZcnYUj fQ== GROSS DESCRIPTION (test code = z0opsHNaCCOoyYMBYQTyG5lhoeKtDTSpaNQh [facility] [id number]) [file] ZSBcbGluZSBLYXRoZXJpbmUgTmFqZXJhLCBQQSBT xESbDZ41DJ3MDURwFXroSLItoMKBBVP8NO4eTNzq xIUjghqfMUSjS7IcI2QqgnGsmMElWWWkjnYdt2lg SXM8FJQnmWTzvQLeUrCeWyodUBE6RWtfi3faKXN1 OQYmdTPbvRRdTHloYlJhQdpgEZHvA8LeX4JogeF1 DQp9 MICROSCOPIC DESCRIPTION (test code = i7aryBNdBRVqdFX9JxAxAJRqj4bcs9 BsdHBncGFy 3371) HEskpNFeokMgop00mPL4uT36CG6aBBXqCqR4OEIu ywY4Vgl8OZGyONDsrMNpJ508j6frz0ecjfEnbGN1 hXqfYLMgiytmKlZ8DXimQXWlzwaaSRi9CRkuDPNi kHM1NZEqcLMlE4UpPIRaCW5jnep7AVE3SCfmUCNc HbF7QZWxdWVaCXPbeXcrNUqgn875SGX9HxJzXLKy xwEydYdkbQ9nSqJhWMJSFzOQHRKng7MnPREpRFkk TTUuhRBxRKLoZTOYBSU7zX2zzbZxSpF1nRCbnFDv yESzWH1rzBC2vK3mgcFiQMJdYoCcfyXsQNVhpFmp U2JzQGQfS5slhZGgkA9gRUPhwWUjOYbldcH9nWRv KIHlCZBpQQF0yB0dfXFpuI1sWGUwS2PkKMR7aqL9 zMPuL7Y3uD6rZH9vHFLfAOUzxPUukrJrUFvtfhMf ggLaAZTslSmobJOrEnIqI7b5VQvfmlNaDJZtv4Ut KGLdFK6cMMxiGYIorCLgqI4cPTTdGRFymFZneZQb bZWhJFOijO1cZDFmBUZrVKjxsOu0MWBiy5NnvXqs VYO5r9ExVCGace6= SPECIAL STUDIES (test code = 3376) r9tjbXQkIJYco0ekMUGqxVGlGlCsDyVb ZnRuYmpc lMOpMQjmgtWfIQkfs7AsY8IvAqXeBSuwsyKkYYHz LyvzaxqcUGFdJZQ8fwSwULQpUYiqGXCgEMrfPk8n gUAmhBdtDlOcWTSsu0udzvVPymhctFe7m7ctIALg BgX9pHPjSFsaV5rhfcRkyBQkW8ZrwNLkhTh3y7di XgYoDbE6oBDoEOwlD5etaxEtvQNzMULzLKh1sL79 UIVvyK9jbROcKGvgroLgCbM5JBmeEXRoJpI6CECa wCRxBMXzB5xiLLJbZJyxWEPgOFzlzPEdVTH5jZet h7K2eDEstEKhcDapOxVrVqKbUoIHw1EhLHa8uGvn T4SrQIOyMfT9dBQmXJAuYGneEZMcVUUskiD5cRcz bsQvv20uxOIwLRXfJBOyRhXejIftYRQrIKAVq3Mi yLhtZSK2yRk7uDrhLbfuLDJ4Skv4PW0pfl20tod4 kLydRSNkuhxrZoS3SUmhLFMizsbkIWu2NJaiMGXk dLV9ASBpoVCrX6PrBPOlXF4owji3AXL4WTjpLOUk NpG9BAZtzZEzVUTytShkPDabi506JYC6QjFsNI8y Z6Yex1L8kH9ssXEpIRXxlVMiAbNnBCNoyi3wsMDb MRwzj8VhEAS5arN9lODaqKAkLPIiOZ53Xtkbq9Pe Fhqcv8UwM34wpBH0UPril9goHT4rJhN4hvWsAXpj c0rwwM6wRfZ4AZvdIS5sKA4yEJBxvO8gfevsIJGm KxMiivsfKRRrmZzbprHxFu0hgObgVYT3VAinS9ev cB0fTwA8OIdmH0khaN9yNEs8ZCkuvSL0ISNrpK1r LB2ukbsth7ewSXftGNzaLGMxxbN9paD3RPHxsFPu D5AioB2jVANtCX9rbscdq9ggTZW3NKexZQKqBTS0 OhLvWTIse7Cgmqs0CdUld7BhxKIuFUcgO14pc611 UZGgqzKvZ5jooDGzjvkfeIXymqwdNKkrsqU3VORu XHBsYWluXGYxXGZzMjJcbGFuZzEwMzNcaGljaFxm ZYcqEzObLLMrKLdyK5ibVeIlQ1ZdCQUpIjAvCOzr XBghfJKcnTHkmBX7hF1fMF9bJMYnzJNdK4DfLAFm osObkXFjJEY1tAHazOMuCC3fEGeowRWcs7ykr6Dc T8dzkApehAH7SD9kIHZfVSZiUCqrd0ZfgK0sItzr rCHhpmtcXCsfbgAoZZinlbiuBPVoVDssL7ygGtRy FJOjyMvoLDiti1QgSYZsHMWqWtaqbgUzMIx5vzEw YRHhiyatFWErqQpomX5kFoCpLpYkAbizHO4wLSYr V3qkfTLoWLGaBUGzH2ssQlQpuY0lyRxjICndZuYj PtSgOxHPl706zh6jDUTsbTUettSTyIJamD7nXQbq VNnqHSwmfCRiPXkvf5dqTFPjc6k3vIXfYESsmzPb q6bmBYxpgxApWKOstTNkbPWlKBFpl82kTAnsjSya eYcgSHWyl7BvkWsgj8DaUlIhYBvtw3SyH32qtMRo rQFcfJllSQOrsuVdWUClh41jv2ubZEQpUlW9kJXi vWK4bOVtwBUbd8StsRzpVOVnk9jcZYVnno2dtljm wELsm4SugE6ilcyrDSbelBCmemMxGWImu5s2qFIa KIRwTXPtWYrsoBm4BDMmb577xc7dypV1wBPpQPE4 YWlsYWJsZSBhcmUgZXZhbHVhdGVkXHBsYWluXGYx XGZzMjJcbGFuZzEwMzNcaGljaFxmMVxkYmNoXGYx IPoeR2trKtBtS0GwMBYqLbIclJVxA7plaHZpCWLo YWluXGYxXGZzMjJcbGFuZzEwMzNcaGljaFxmMVxk LyZmKUXzCUytO7grQaIzC0OyXLYpZtCrNOulfNMw qbbxGVjchtEqKPdmaoptTSCsHLhgU9fpVxYqQKFi qFagEKorp5ShVNKoTXSgMefatpOjQDj8dsSbPMOl ftjkwMMnqmzpTXrfktYgYUxaxsgdUQAgQEexK0wq [file] SzrwISV5qT== Gross assessment was performed at (test [facility] enter, code = 2777) Department of Pathology, [address] [place] [id number], Technical component was performed at [facility] er, (test code = 2778) Department of Pathology, [address] [place] [id number], Professional component was performed at [facility] enter, (test code = 2779) Department of Pathology, [address] [place] [id number], [facility] [id number] 17:41:34Surgical Pathology Report Case: [id number] Authorizing Provider: Sergio Dai MD Collected: 03/08/2022 05:39 PM Ordering Location: [facility] PER[facility] Received: 03/09/2022 08:25 AM SERVICES Pathologist: Desiree Horn MD Specimens: A) - Tumor, fat overlying tumor B) - Tumor, left renal tumor A. SOFT TISSUE, SUBMITTED "FAT OVERLYING TUMOR", EXCISION -MATURE ADIPOSE TISSUE WITH NO PATHOLOGIC ALTER ATIONB. LEFT RENAL TUMOR, EXCISION -UNILOCULAR CYST LINED BY CLEAR CELLS WITH FOCAL STRATIFICATION -SURGICAL MARGINS NEGATIVE FOR CYST Signing Pathologist Direct Phone Line: [phone] signed by Desiree Horn MD on 04/05/2022 at 5:41 [id number] renal massA. Tumor.Specimen is received fresh labeled with the patient's name, MRN and "tumor" and consists of a single unoriented, miguel-yellow, lobulated, rectangular adipose tissue fragment (4.8 x 1.8 x 0.7 cm). The specimen is serially sectioned to reveal homogenous, lobulated, grossly unremarkable cut surfaces. The specimen is entirely submitted in A1-A3B. Tumor.Specimen is received fresh labeled with the patient's name, MRN and"tumor" and consists of a single miguel-pink segment of kidney with attached adipose tissue (3.2 x 1.8 x 0.9 cm). The specimen is serially sectioned to reveal miguel-pink homogenous parenchyma and miguel-yellowlobulated adipose tissue. The specimen is entirely submitted in B1-A2HjlbeqhfyBINA Sánchez AAnnel Performed. B. Sections of the left renal tumor has been a unilocular cyst lined by cells with clear cytoplasm. Focal stratification of the clear cells is identified. CK7 was performed and is patchy. The surgical margins are negative for the cyst.The interpretation of this case included the use of immun ohistochemistry or special stains.Control Slides Examined: In-house known positive controls were evaluated along with the test tissue. These control slides run alongside of the patients sample show appropriate staining. Internal positive and negative controls when available are evaluated Immunohistochemistry technical testing was performed at [facility], Pathology Laboratory where it was developed and its performance characteristics were determined. It has not been cleared or approved by the U.S. Food and Drug Administration. The FDA has determined that such clearance or approval is not necessary. The test is used for clinical purposes. It should not be regarded as investigational or for research. This laboratory is certified under the Clinical Laboratory Improvement Amendments of 1988 (CLIA-88) as qualified to perform high complexity clinical laboratory testing.[facility], Department of Pathology, [address] [place] [id number], [facility], [address] [place] [id number], [facility], [address] [place] [address], RC, CTA ABDOMEN, AAA [id number] 14:11:00Reason for Exam:- >evaluate for post op bleed, [facility] partial neph[facility] : 1955 Sex: FFINAL REPORT CT/CTA of the abdomen and pelvis, 03/11/2022. History: Status post partial left refractory, evaluate for postop bleed. Comparison: None available. Technique: Multidetector CT scanning of the abdomen and pelvis was performed from the level of the lung bases to the inferior pubic ramus, before and after intravenous administration of non-ionic contrast and without oral cont rast. This exam was performed according to our departmental dose-optimization program which includesautomated exposure control, adjustment of the mA and/or kV according to patient size and/or use of iterative reconstruction technique. Discussion: Lung bases: There is left basilar atelectasis. Abdomen: The abdominal aorta is within normal limits for size without evidence of atherosclerotic disease, aneurysm, or stenosis, measuring up to 2.5 cm at the level of the celiac trunk. The celiac artery, SMA, and BRIAN are patent. The renal arteries are patent. There is no evidence of pseudoaneurysm or extraluminal contrast extravasation. There is patchy enhancement of the left kidney without focal renal abnormality, and no evidence of nephrolithiasis or hydronephrosis. There is left perinephric fat stranding with small amounts of fluid and air, without evidence of hematoma. A surgical drain is present in the left abdomen. Left anterior abdominal wall subcutaneous fat stranding and air are present consistent with recent surgery. A 6 cm simple cyst is present in the lateral aspect of the right kidney, no follow-up imaging recommended. The liver, biliary tree, spleen, pancreas, and adrenal glands are normal. Cholecystectomy clips are present. The hepatic vein, portal vein, and splenic vein are patent. Evaluation bowel is limited without oral contrast. There is no bowel dilatation. The appendix is visualized and is normal. There is no evidence of adenopathy or free fluid. Pelvis: A small amount of air is present within the bladder which is otherwise unremarkable. The uterus and ovaries are not clearly visualized. There is no evidence of free fluid or adenopathy. Bones: Advanced degenerative changes are present throughout the lumbar spine without evidence of lytic or sclerotic lesion. IMPRESSION:Postoperative changes of the left kidney and abdomen without evidence of active bleed, hematoma, or renal artery pseudoaneurysm. Signed: Moreno Avery [facility]ENeport Verified Date/Time: 03/11/2022 14:11:03 CT, CTA PELVIS, AAA [id number] 14:11:00Reason for Exam:->evaluate for post op bleed, [facility] partial neph[facility] : 1955 Sex: FFINAL REPORT CT/CTA of the abdomen and pelvis, 03/11/2022. History: Status post partial left refractory, evaluate for postop bleed. Comparison: None available. Technique: MultidetectorCT scanning of the abdomen and pelvis was performed from the level of the lung bases to the inferiorpubic ramus, before and after intravenous administration of non-ionic contrast and without oral contrast. This exam was performed according to our departmental dose- optimization program which includes automated exposure control, adjustment of the mA and/or kV according to patient size and/or use of iterative reconstruction technique. Discussion: Lung bases: There is left basilar atelectasis. Abdomen:The abdominal aorta is within normal limits for size without evidence of atherosclerotic disease, aneurysm, or stenosis, measuring up to 2.5 cm at the level of the celiac trunk. The celiac artery, SMA,and BRIAN are patent. The renal arteries are patent. There is no evidence of pseudoaneurysm or extraluminal contrast extravasation. There is patchy enhancement of the left kidney without focal renal abnormality, and no evidence of nephrolithiasis or hydronephrosis. There is left perinephric fat stranding with small amounts of fluid and air, without evidence of hematoma. A surgical drain is present in the left abdomen. Left anterior abdominal wall subcutaneous fat stranding and air are present consistent with recent surgery. A 6 cm simple cyst is present in the lateral aspect of the right kidney, no follow-up imaging recommended. The liver, biliary tree, spleen, pancreas, and adrenal glands are normal. Cholecystectomy clips are present. The hepatic vein, portal vein, and splenic vein are patent. Evaluation bowel is limited without oral contrast. There is no bowel dilatation. The appendix is visualized and is normal. There is no evidence of adenopathy or free fluid. Pelvis: A small amount of air ispresent within the bladder which is otherwise unremarkable. The uterus and ovaries are not clearly visualized. There is no evidence of free fluid or adenopathy. Bones: Advanced degenerative changes arepresent throughout the lumbar spine without evidence of lytic or sclerotic lesion. IMPRESSION:Postoperative changes of the left kidney and abdomen without evidence of active bleed, hematoma, or renal artery pseudoaneurysm. Signed: Moreno Averyeport Verified Date/Time: 03/11/2022 14:11:03 CBC W/PLT COUNT & AUTO [id number] 08:04:57 Test Item Value Reference Range Interpretation Comments WHITE BLOOD CELL COUNT (BEAKER) 8.1 K/ L 3.5-10.5 (test code = 775) RED BLOOD CELL COUNT (BEAKER) 3.37 M/ L 3.93-5.22 L (test code = 761) HEMOGLOBIN (BEAKER) (test code = 10.2 GM/DL 11.2-15.7 L 410) HEMATOCRIT (BEAKER) (test code = 31.8 % 34.1-44.9 L 411) MEAN CORPUSCULAR VOLUME (BEAKER) 94 fL 79-95 (test code = 753) MEAN CORPUSCULAR HEMOGLOBIN 30.3 pg 25.6-32.2 (BEAKER) (test code = 751) MEAN CORPUSCULAR HEMOGLOBIN CONC 32.1 GM/DL 32.2-35.5 L (BEAKER) (test code = 752) RED CELL DISTRIBUTION WIDTH 13.0 % 11.7-14.4 (BEAKER) (test code = 412) PLATELET COUNT (BEAKER) (test 161 K/CU MM 150-450 code = 756) MEAN PLATELET VOLUME (BEAKER) 10.3 fL 9.4-12.3 (test code = 754) NUCLEATED RED BLOOD CELLS 0 /100 WBC 0-0 (BEAKER) (test code = 413) NEUTROPHILS RELATIVE PERCENT 73 % (BEAKER) (test code = 429) LYMPHOCYTES RELATIVE PERCENT 17 % (BEAKER) (test code = 430) MONOCYTES RELATIVE PERCENT 8 % (BEAKER) (test code = 431) EOSINOPHILS RELATIVE PERCENT 1 % (BEAKER) (test code = 432) BASOPHILS RELATIVE PERCENT 1 % (BEAKER) (test code = 437) NEUTROPHILS ABSOLUTE COUNT 5.96 K/ L 1.56-6.13 (BEAKER) (test code = 670) LYMPHOCYTES ABSOLUTE COUNT 1.36 K/ L 1.18-3.74 (BEAKER) (test code = 414) MONOCYTES ABSOLUTE COUNT (BEAKER) 0.67 K/ L 0.24-0.36 H (test code = 415) EOSINOPHILS ABSOLUTE COUNT 0.06 K/ L 0.04-0.36 (BEAKER) (test code = 416) BASOPHILS ABSOLUTE COUNT (BEAKER) 0.04 K/ L 0.01-0.08 (test code = 417) IMMATURE GRANULOCYTES-RELATIVE 0.50 % 0.00-1.00 PERCENT (BEAKER) (test code = 2801) BASIC METABOLIC [id number] 05:11:05 Test Item Value Reference Range Interpretation Comments SODIUM (BEAKER) 138 meq/L 136-145 (test code = 381) POTASSIUM 3.6 meq/L 3.5-5.1 (BEAKER) (test code = 379) CHLORIDE (BEAKER) 106 meq/L 98-107 (test code = 382) CO2 (BEAKER) 26 meq/L 22-29 (test code = 355) BLOOD UREA 6 mg/dL 7-21 L NITROGEN (BEAKER) (test code = 354) CREATININE 0.63 mg/dL 0.57-1.25 (BEAKER) (test code = 358) GLUCOSE RANDOM 89 mg/dL 70-105 (BEAKER) (test code = 652) CALCIUM (BEAKER) 8.2 mg/dL 8.4-10.2 L (test code = 697) EGFR (BEAKER) 98 Interpretatio n of eGFR (test code = mL/min/1.73 values Stage De scription 1092) sq m Result G1 Viktoriya l or high >=90 G2 Mildly decreased 60-89 G3a Mildl y to moderately 45-5 9 G3b Moderately to s everely 30-44 G4 Severl y decreased 15-29 G5 Kidney failure <15Reported eGF R is based on the CKD-EPI 1 equation that d oes not use a race coefficientEsti mated GFR is not as accur ate as Creatinine Carlene kiesha in predicting glom erular filtration rate . Estimated GFR is not appl icable for dialysis patien ts Court Administrator ID - ADMINHEMOGLOBIN AND [id number] 04:46:17 Test Item Value Reference Range Interpretation Comments HEMOGLOBIN (BEAKER) (test code = 9.9 GM/DL 11.2-15.7 L 410) HEMATOCRIT (BEAKER) (test code = 30.9 % 34.1-44.9 L 411) Court Administrator ID - [id number] METABOLIC [id number] 06:27:58 Test Item Value Reference Range Interpretation Comments SODIUM (BEAKER) 138 meq/L 136-145 (test code = 381) POTASSIUM 3.7 meq/L 3.5-5.1 (BEAKER) (test code = 379) CHLORIDE (BEAKER) 109 meq/L 98-107 H (test code = 382) CO2 (BEAKER) 23 meq/L 22-29 (test code = 355) BLOOD UREA 7 mg/dL 7-21 NITROGEN (BEAKER) (test code = 354) CREATININE 0.72 mg/dL 0.57-1.25 (BEAKER) (test code = 358) GLUCOSE RANDOM 97 mg/dL 70-105 (BEAKER) (test code = 652) CALCIUM (BEAKER) 8.1 mg/dL 8.4-10.2 L (test code = 697) EGFR (BEAKER) 92 Interpretatio n of eGFR (test code = mL/min/1.73 values Stage De scription 1092) sq m Result G1 Viktoriya l or high >=90 G2 Mildly decreased 60-89 G3a Mildl y to moderately 45-5 9 G3b Moderately to s everely 30-44 G4 Severl y decreased 15-29 G5 Kidney failure <15Reported eGF R is based on the CKD-EPI 2020 equation that d oes not use a race coefficientEsti mated GFR is not as accur ate as Creatinine Carlene kiesha in predicting glom erular filtration rate . Estimated GFR is not appl icable for dialysis patien ts Court Administrator ID - SAMMI GHEMOGLOBIN AND [id number] 06:08:11 Test Item Value Reference Range Interpretation Comments HEMOGLOBIN (BEAKER) (test code = 10.7 GM/DL 11.2-15.7 L 410) HEMATOCRIT (BEAKER) (test code = 34.3 % 34.1-44.9 411) Court Administrator ID - [id number] METABOLIC [id number] 07:04:20 Test Item Value Reference Range Interpretation Comments SODIUM (BEAKER) 141 meq/L 136-145 (test code = 381) POTASSIUM 4.2 meq/L 3.5-5.1 (BEAKER) (test code = 379) CHLORIDE (BEAKER) 111 meq/L 98-107 H (test code = 382) CO2 (BEAKER) 22 meq/L 22-29 (test code = 355) BLOOD UREA 8 mg/dL 7-21 NITROGEN (BEAKER) (test code = 354) CREATININE 0.78 mg/dL 0.57-1.25 (BEAKER) (test code = 358) GLUCOSE RANDOM 107 mg/dL 70-105 H (BEAKER) (test code = 652) CALCIUM (BEAKER) 7.7 mg/dL 8.4-10.2 L (test code = 697) EGFR (BEAKER) 84 Interpretatio n of eGFR (test code = mL/min/1.73 values Stage De scription 1092) sq m Result G1 Viktoriya l or high >=90 G2 Mildly decreased 60-89 G3a Mildl y to moderately 45-5 9 G3b Moderately to s everely 30-44 G4 Severl y decreased 15-29 G5 Kidney failure <15Reported eGF R is based on the CKD-EPI 2020 equation that d oes not use a race coefficientEsti mated GFR is not as accur ate as Creatinine Carlene kiesha in predicting glom erular filtration rate . Estimated GFR is not appl icable for dialysis patien ts Court Administrator ID - MARCOHEMOGLOBIN AND [id number] 06:44:02 Test Item Value Reference Range Interpretation Comments HEMOGLOBIN (BEAKER) (test code = 11.6 GM/DL 11.2-15.7 410) HEMATOCRIT (BEAKER) (test code = 36.4 % 34.1-44.9 411) Court Administrator ID - [id number] METABOLIC [id number] 21:19:25 Test Item Value Reference Range Interpretation Comments SODIUM (BEAKER) 141 meq/L 136-145 (test code = 381) POTASSIUM 3.8 meq/L 3.5-5.1 (BEAKER) (test code = 379) CHLORIDE (BEAKER) 111 meq/L 98-107 H (test code = 382) CO2 (BEAKER) 17 meq/L 22-29 L (test code = 355) BLOOD UREA 8 mg/dL 7-21 NITROGEN (BEAKER) (test code = 354) CREATININE 0.78 mg/dL 0.57-1.25 (BEAKER) (test code = 358) GLUCOSE RANDOM 182 mg/dL 70-105 H (BEAKER) (test code = 652) CALCIUM (BEAKER) 7.8 mg/dL 8.4-10.2 L (test code = 697) EGFR (BEAKER) 84 Interpretatio n of eGFR (test code = mL/min/1.73 values Stage De scription 1092) sq m Result G1 Viktoriya l or high >=90 G2 Mildly decreased 60-89 G3a Mildl y to moderately 45-5 9 G3b Moderately to s everely 30-44 G4 Sever ly decreased 15-29 G5 Kidney failure <15Repo rted eGFR is based on the CKD-EPI 2020 equation t hat does not use a race coefficientEsti mated GFR is not as accur ate as Creatinine Carlene kiesha in predicting glom erular filtration rate . Estimated GFR is not appl icable for dialysis patien ts Court Administrator ID - MARCOHEMOGLOBIN AND [id number] 20:50:20 Test Item Value Reference Range Interpretation Comments HEMOGLOBIN (BEAKER) (test code = 12.4 GM/DL 11.2-15.7 410) HEMATOCRIT (BEAKER) (test code = 38.5 % 34.1-44.9 411) Court Administrator ID - [id number] [id number] 12:27:00 Test Item Value Reference Range Interpretation Comments CROSSMATCH (test code = 2264) COMPATIBLE Unit ABO (test code = A Neg 8079772) UNIT NUMBER (test code = X702071689252 934-0) Status (test code = 5786993) READY Blood Bank Product (test code RED BLOOD CELLS = 2263) PRODUCT CODE (test code = Y1237G47 933-2) [facility] Notes Date/Time Note Provider Source 2022-03-08 23:02:38-00:00 SERGIO DAI [facility] OPERATIVE/PROCEDURE REPORT VANE VINSON FACILITY: [facility] Billing #: [id number] [facility]: [id number] : 1955 DATE OF PROCEDURE: 03/08/2022 SURGEON: Sergio Dai MD PREOPERATIVE DIAGNOSIS: Left renal mass 1 cm. POSTOPERATIVE DIAGNOSES: 1. Left renal mass 1 cm. 2. Extensive intraabdominal adhesions. PROCEDURES: 1. Robot assisted laparoscopic left partial neph rectomy. 2. Extensive lysis of intraabdominal adhesions. INDICATIONS FOR PROCEDURE: Ms. 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 She was counseled ext ensively on options for observation versus management and ul deyaniraately elected to proceed with a partial nephrectomy. W hile she has had prior cholecystectomy, she was deemed a reas onable candidate for the robot assisted laparoscopic ap proach. DESCRIPTION OF PROCEDURE: The patient was consen agus in the preoperative holding area before being transferr ed to the operative suite, where general anesthesia was in duced. An OG tube was placed for gastric decompression and pn eumo-boots were provided for DVT prophylaxis. She was placed in the modified flank position with a gel roll beneath her back and hips and shoulders and an axillary roll beneath her right axilla. She was extensively padded and secured to the table appropriately and a test roll of the table revealed the patien t was stable in position and did not move. Ancef 2 g was provide d for IV antimicrobial prophylaxis and an arterial line h ad been placed by Anesthesia. The case was begun after prepping her abdomen with ChloraPrep and draping it in standard fashi on by attempting Veress needle insufflation of her abd ominal cavity within the left upper quadrant. This was unsucce ssful despite 3 different attempts; so we had to perform the H asson technique to gain access into her abdominal cavity. Using the site identified for the camera port incision, which w as shifted to the left upper quadrant from the umbilicus due t o her morbidly obese habitus, the skin was incised after inject ing 0.25% Marcaine and deepened through the subcutaneous t issues, fat and fascia until the true fascia was observed. Becau se it was very deep, Usman clamps were applied on the fascia a nd it was elevated and heavy Jones scissors were used to in cise the fascia longitudinally between the fibers. We were then able to separate the musculature beneath and identify th e inner fascial sheath which we directly penetrated with a Veres s needle this time gaining successful insufflation pressures a nd insufflating her abdomen to 15 mmHg pressure. Then placing an 8 mm optical trocar along side the Veress needle into her abd ominal cavity we were able to visualize extensive intraabdomin al adhesions that prohibited visualization. After carefully s earching through all of these adhesions looking for sembl ance of normal anatomy, there was a clearing spot within the ad hesion heading laterally to the left upper quadrant that I was able to navigate the scope directly through and was then able to visualize more normal intraperitoneal anatomy fo r the left upper lateral quadrant. As a result, we then rose sylwia an additional 8 mm robotic trocar for the 3rd and 4 th arm positions in the left lateral and lower quadrant s under direct vision. Once this was done, we were then able to place the scope through those trocars and visualized the i nitial 8 mm camera trocar that was placed. It was placed and surrounded by a series of extensive intraabdominal adhesions e xtending from the midline anteriorly all the way down to the l ower midline and crossing the right midline into the left randy trally. As a result, we employed Endoshears and blunt dissect ion to incise and release all of these adhesions from where it crossed the midline sufficient to be able [facility] trocar site. Additionally, the adhesions in the lower midline were similarly lysed off the peritoneal surface in order to place the 12 mm museum assistant port and the insufflation trocar at that site. Once all trocars were succe ssfully placed after extensive lysis of adhesions, we then cont inued to dock the robot and using Endoshears in the right hand and a fenestrated bipolar in the left hand along with a ProGrasp in the 4th arm, we began by incising the superficia l layer of peritoneum overlying the line of Toldt. This was taken up to the splenic flexure where an additional adhesion was found. This was taken down as well and additional adhes ions superior to the left arm trocar site were similarly taken down to allow freedom of movement and subsequent dissection wi thout running into that adhesion. Once all adhesions have been sufficiently cleared, we then continued to divide the line of Toldt reflecting the colon medially over the anterior surface of the kidney and reflecting the spleen superiorly and medially. The colon was sufficiently reflected off the anterio r surface of the kidney and the tail of Gerota's was visualiz ed. We were able to visualize the psoas tendon and then the gonadal vessel and eventually the ureter. Blunt dissection was then used to elevate the ureter using the 4th arm, and dissec tion of any posterior attachments between the kidney and the psoas were then divided. We then identified a small lower p ole renal artery, which was spared before progressing forw dada to the hilum where the real vein was identified. Since the renal artery was not identified posteriorly because of the very large lumbar identified after dissection in that locat ion, superior to the vein dissection did reveal the presence o f the renal artery, which was carefully dissected until the artery was independently freed circumferentially and able t o be clamped. We then turned our attention to identifying the renal mass by dissecting Gerota fascia superiorly and laterall y from the renal vein. Quickly in this location we identifi ed the mass that was very superficial and exophytic from the kidney and was partially cystic and partially solid. Using intr aoperative ultrasonographic, the borders of the mass, espec ially the solid component were identified and were scored within the parenchyma of the kidney. Once adequately identified the ramandeep rders of the mass, we then placed 2 straight bull dog clamps on the renal artery and then a curve bull dog clamp on the re nal vein. With the kidney clamped and the timer progressing, th e renal mass was then resected from the parenchyma of the [place]. During the resection, with manipulation/lateralization of the lesion to provide traction for the resection, the cystic component of the mass did rupture and the fluid from within was aspirated. After recon struction, the area of tissue around the resection site was then irrigated and aspirated the abdomen. The parenchymal resection margin wa s clear and the margin abutting the branch of the renal vein superiorly appeared intact. As a result, the construction o f the renorrhaphy was then performed using a 3-0 V-Loc suture in a running fashion. Since the area resected was sma ll, only about 1 cm in diameter, a single V-Loc was sufficient to close the renorrhaphy site completely. As a result, after 12 minutes of clamp time, the bull dog clamps were removed, an d careful surgical bleeding was undertaken. With no sign o f any arterial or venous bleeding coming from the renorrhaphy s ite, we again irrigated and aspirated the tissues inferiorly t o the kidney and in the region of the hilum and ureter aspira ting any and all fluid from within. We then applied Surgicel and Tisseel over the site for additional hemostasis. We then placed a 19-German Reinaldo drain via the 4th arm robotic si te and delivered the renal mass by placing it in an End oCatch bag, which was ultimately delivered via the camera po rt incision initially made. Once the mass was delivered and all trocars were removed, because of her morbid obesity, gre at effort was made in closing the small incisions created. Int errupted [id number] sutures of 0 PDS were utilized t o close the camera port trocar site as well as the 12 mm ass istant site. Once these were adequately closed, irrigation wa s performed of the subcutaneous tissues, the tissues were anest hetized with 0.25% Marcaine and then they were closed with 4- 0 Monocryl suture. Dermabond was used to seal the skin, and the patient was then taken out of the modified flank positio n, and placed supine where she awakened from general anesthesi a. She was then transferred to a stretcher, and then transf erred to recovery room in good condition. COMPLICATIONS: Rupture of cystic component of re nal mass. DISCHARGE DISPOSITION: She will be standard part ial nephrectomy pathway with urethral catheter remov ed on postoperative day #2 after observing drain outpu t on postoperative day #1. THOMAS/NIKKI /[id number]
--- NOTE | 2022-08-03 18:18 | RAD REPORT ---
EXAM DESCRIPTION: RAD - Chest Single View - 08/03/2022 6:13 pm CLINICAL HISTORY: COUGH Chest pain. COMPARISON: Chest Pa And Lat (2 Views) dated 03/02/2022 FINDINGS: Portable technique limits examination quality. The lungs are grossly clear. The heart is mildly prominent in size. No displaced fractures. IMPRESSION: No acute intrathoracic process suspected.
--- NOTE | 2022-08-03 18:59 | RAD REPORT ---
EXAM DESCRIPTION: CT - Head Brain Wo Cont - 08/03/2022 6:53 pm CLINICAL HISTORY: Dizziness;Headache Headache, drowsiness, visual changes COMPARISON: No comparisons TECHNIQUE: All CT scans are performed using dose optimization technique as appropriate and may inclu de automated exposure control or mA/KV adjustment according to patient size. FINDINGS: No intracranial hemorrhage, hydrocephalus or extra-axial fluid collection.No areas of brai n edema or evidence of midline shift. The paranasal sinuses and mastoids are clear. The calvarium is intact. IMPRESSION: No acute intracranial abnormality.
[2022-08-03] MEDS ORDERED: NA CHLORIDE 0.9% 1,000 ML ONE (19:37)
[2022-08-03] MEDS ORDERED: DIPHENHYDRAMINE 50 MG/ML VIAL ONE (19:37)
[2022-08-03] MEDS ORDERED: METOCLOPRAMIDE 10 MG/2mL INJ ONE (19:37)
[2022-08-03] MEDS ORDERED: KETOROLAC 30 MG/ML INJ ONE (19:37)
[2022-08-03] MEDS ORDERED: ONDANSETRON 4 MG/2 ML VIAL ONE (19:37)
[2022-08-03 20:21] LABS: Absolute Lymphocytes (CBC) 3.1 K/uL (0.7-4.9); Hematocrit 37.4 % (36.0-45.0); Lymphocytes % 40.2 % (15.3-44.8); MCV 91.7 fL (80-100); MPV 8.3 fL (7.6-11.3); RBC Red Blood Cell Count 4.08 M/uL (3.86-4.86)
[2022-08-03 20:40] LABS: ALT/SGPT 21 U/L (13-56); AST/SGOT 21 U/L (15-37); Albumin 3.5 g/dL (3.4-5.0); Alkaline Phosphatase 61 U/L (45-117); BUN Blood Urea Nitrogen 17 mg/dL (7-18); Bicarbonate 26 mEq/L (21-32); Bilirubin Total 0.3 mg/dL (0.2-1.0); Glomerular Filtration Rate 85 ml/min (=/>90); Glucose Level 99 mg/dL (74-106); Magnesium 2.3 mg/dL (1.6-2.4); NT PRO-BNP 70 pg/mL (<125); Protein, Total 7.9 g/dL (6.4-8.2); Protime INR 0.9; Sodium Level 137 mEq/L (136-145); Troponin High Sensitivity 4.6 pg/mL (<58.9)
[2022-08-03 20:43] LABS: Bilirubin Direct < 0.1 mg/dL (0-0.2); Bilirubin Indirect, Calculated ND mg/dL (0.2-0.8)
--- NOTE | 2022-08-03 20:56 | ER ---
Nurse's Notes [facility] Name: Vane Vinson Age: 66 yrs Sex: Female : 1955 Arrival Date: 08/03/2022 Time: 17:36 Bed 4 Private MD: Diagnosis: Headache;Nausea Presentation: 08/03 17:54 Chief complaint: Patient states: headache, nausea, and blurred vision x 1 week ago. Pt aa5 states "it feels like a migraine and my doctor said to come here". 17:54 Coronavirus screen: headache. Ebola Screen: Patient denies travel to an Ebola-affected [facility] area in the 21 days before illness onset. Initial Sepsis Screen: Does the patient meet any 2 criteria? No. Patient's initial sepsis screen is negative. Does the patient have a suspected source of infection? No. Patient's initial sepsis screen is negative. Risk Assessment: Do you want to hurt yourself or someone else? Patient reports no desire to harm self or others. Onset of symptoms was July 2022. 17:54 Acuity: MICHELLE 3 aa5 17:54 Method Of Arrival: Ambulatory aa5 Historical: - Allergies: 18:06 No Known Allergies; aa5 - Home Meds: 18:06 Enalapril Oral [Active]; gabapentin [Active]; Prilosec Oral [Active]; alendronate oral aa5 [Active]; - PMHx: 18:06 Migraine; Hypertensive disorder; acid reflux; Osteoporosis; aa5 - PSHx: 18:06 tumor removed from kidney; Cholecystectomy; Tonsillectomy; aa5 - Immunization history:: Adult Immunizations unknown. - Social history:: Smoking status: Patient/guardian denies using tobacco. - Family history:: not pertinent. Screenin:[facility] ED Fall Risk Assessment (Adult) History of falling in the last 3 months, jb4 including since admission No falls in past 3 months (0 pts) Confusion or Disorientation No (0 pts) Score/Fall Risk Level 0 - 2 = Low Risk. Abuse screen: Denies threats or abuse. Nutritional screening: No deficits noted. Tuberculosis screening: No symptoms or risk factors identified. Assessment: 19:44 General: Appears in no apparent distress. comfortable, Behavior is calm, cooperative, jb4 appropriate for age. Pain: Complains of pain in headache Pain does not radiate. Pain currently is 6 out of 10 on a pain scale. Neuro: Level of Consciousness is awake, alert, obeys commands, Oriented to person, place, time, situation. Cardiovascular: Patient's skin is warm and dry. Respiratory: Airway is patent Respiratory effort is even, unlabored, Respiratory pattern is regular, symmetrical. GI: No signs and/or symptoms were reported involving the gastrointestinal system. : No signs and/or symptoms were reported regarding the genitourinary system. EENT: No signs and/or symptoms were reported regarding the EENT system. Derm: Skin is intact, Skin is pink, warm \\T\\ dry. Musculoskeletal: Circulation, motion, and sensation intact. Range of motion: intact in all extremities. 20:30 Reassessment: Patient appears in no apparent distress at this time. Patient and/or jb4 family updated on plan of care and expected duration. Pain level reassessed. Patient is alert, oriented x 3, equal unlabored respirations, skin warm/dry/pink. 21:32 Reassessment: Patient appears in no apparent distress at this time. Patient and/or jb4 family updated on plan of care and expected duration. Pain level reassessed. Patient is alert, oriented x 3, equal unlabored respirations, skin warm/dry/pink. Vital Signs: 17:54 BP 141 / 91; Pulse 60; Resp 16 S; Temp 97.9(TE); Pulse Ox 100% on R/A; Weight 97.52 kg aa5 (R); Height 5 ft. 4 in. (R); 19:26 BP 123 / 73; Pulse 59; Resp 16; Pulse Ox 100% on R/A; jb4 20:30 BP 124 / 102; Pulse 78; Resp 16; Pulse Ox 100% on 2 lpm NC; jb4 17:54 Body Mass Index 36.90 (97.52 kg, 162.56 cm) aa5 Marion Coma Score: 19:54 Eye Response: spontaneous(4). Motor Response: obeys commands(6). Verbal Response: [place] oriented(5). Total: 15. ED Course: 17:38 Patient arrived in ED. rg4 17:44 Ld Askew MD is Attending Physician. [place] 17:54 Arm band placed on. aa5 18:05 Triage completed. aa5 18:15 XRAY Chest (1 view) In Process Unspecified. EDMS 18:54 CT Head Brain wo Cont In Process Unspecified. EDMS 19:26 Initial lab(s) drawn, by me, sent to lab. Inserted saline lock: 22 gauge in right jb4 antecubital area, using aseptic technique. Blood collected. 19:38 Basic Metabolic Panel Sent. lg3 19:38 CBC with Diff Sent. lg3 19:38 LFT's Sent. lg3 19:38 Magnesium Sent. lg3 19:38 NT PRO-BNP Sent. lg3 19:38 PT-INR Sent. lg3 19:38 Troponin HS Sent. lg3 19:44 Bernard Fowler, RN is Primary Nurse. jb4 19:46 Patient has correct armband on for positive identification. Bed in low position. Call jb4 light in reach. Side rails up X 1. Client placed on continuous cardiac and pulse oximetry monitoring. NIBP monitoring applied. laboratory monitor on. 20:56 Micheal Anaya MD is Referral Physician. [facility] 21:32 No provider procedures requiring assistance completed. IV discontinued, intact, jb4 bleeding controlled, No redness/swelling at site. Pressure dressing applied. Administered Medications: 19:37 Drug: NS 0.9% IV 1000 ml Route: IV; Rate: 1 bolus; Site: right antecubital; lg3 19:37 Drug: Ondansetron IVP 4 mg Route: IVP; Site: right antecubital; lg3 19:37 Drug: diphenhydrAMINE IVP 50 mg Route: IVP; Site: right antecubital; lg3 19:37 Drug: metoCLOPramide IVP 10 mg Route: IVP; Site: right antecubital; lg3 19:37 Drug: Ketorolac IVP 30 mg Route: IVP; Site: right antecubital; lg3 Outcome: 20:56 Discharge ordered by . [place] 21:32 Discharged to home ambulatory, with family. jb4 21:32 Condition: stable 21:32 Discharge instructions given to patient, Instructed on discharge instructions, follow up and referral plans. Demonstrated understanding of instructions, follow-up care, medications, Prescriptions given X 2. 21:33 Patient left the ED. jb4 Signatures: Dispatcher [employer] EDMS Ld Askew MD MD cha Calderon, Audri, RN RN dina5 Bharti Mora rg4 Bernard Fowler RN RN jb4 Kelley Velasquez, RN RN lg3
--- NOTE | 2022-08-03 20:56 | EDPHYS ---
Physician Documentation [facility] Name: Vane Vinson Age: 66 yrs Sex: Female : 1955 Arrival Date: 08/03/2022 Time: 17:36 Bed 4 Private MD: COTY Physician Ld Askew HPI: 08/03 19:47 This 66 yrs old Female presents to ER via Ambulatory with complaints of [place] Headache, Nausea, Blurred Vision. 19:47 The patient complains of pain to the top of head, forehead and left frontal area. The [place] patient describes the headache as aching. Onset: The symptoms/episode began/occurred today. Associated signs and symptoms: Pertinent positives: nausea, blurred vision. Severity of symptoms: At its worst the pain was moderate, in the emergency department the pain is unchanged. Severity of symptoms: At its worst the pain was. Headache History: The patient has had previous headaches and this one is similar to previous episodes. Headache History: Denies prior headaches. The patient has experienced similar episodes in the past, multiple times. 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 - Social history:: Smoking status: Patient/guardian denies using tobacco. - Family history:: not pertinent. ROS: 19:47 Constitutional: Negative for fever, chills, and weight loss, Eyes: Negative for injury, [place] pain, redness, and discharge, ENT: Negative for injury, pain, and discharge, Neck: Negative for injury, pain, and swelling, Cardiovascular: Negative for chest pain, palpitations, and edema, Respiratory: Negative for shortness of breath, cough, wheezing, and pleuritic chest pain, Abdomen/GI: Negative for abdominal pain, nausea, vomiting, diarrhea, and constipation, Back: Negative for injury and pain, : Negative for injury, bleeding, discharge, and swelling, MS/Extremity: Negative for injury and deformity, Skin: Negative for injury, rash, and discoloration, Psych: Negative for depression, anxiety, suicide ideation, homicidal ideation, and hallucinations, Allergy/Immunology: Negative for hives, rash, and allergies, Endocrine: Negative for neck swelling, polydipsia, polyuria, polyphagia, and marked weight changes, Hematologic/Lymphatic: Negative for swollen nodes, abnormal bleeding, and unusual bruising. 19:47 Neuro: Positive for headache. 20:55 : Negative for urinary symptoms, urinary frequency, small amounts, hematuria, pelvic pey[place] pain, burning with urination, difficulty urinating, bladder incontinence, foul smelling urine, vaginal bleeding. Exam: 19:47 Constitutional: This is a well developed, well nourished patient who is awake, alert, [place] and in no acute distress. Head/Face: Normocephalic, atraumatic. Eyes: Pupils equal round and reactive to light, extra-ocular motions intact. Lids and lashes normal. Conjunctiva and sclera are non-icteric and not injected. Cornea within normal limits. Periorbital areas with no swelling, redness, or edema. ENT: Nares patent. No nasal discharge, no septal abnormalities noted. Tympanic membranes are normal and external auditory canals are clear. Oropharynx with no redness, swelling, or masses, exudates, or evidence of obstruction, uvula midline. Mucous membranes moist. Neck: Trachea midline, no thyromegaly or masses palpated, and no cervical lymphadenopathy. Supple, full range of motion without nuchal rigidity, or vertebral point tenderness. No Meningismus. Chest/axilla: Normal chest wall appearance and motion. Nontender with no deformity. No lesions are appreciated. Cardiovascular: Regular rate and rhythm with a normal S1 and S2. No gallops, murmurs, or rubs. Normal PMI, no JVD. No pulse deficits. Respiratory: Lungs have equal breath sounds bilaterally, clear to auscultation and percussion. No rales, rhonchi or wheezes noted. No increased work of breathing, no retractions or nasal flaring. Abdomen/GI: Soft, non-tender, with normal bowel sounds. No distension or tympany. No guarding or rebound. No evidence of tenderness throughout. Back: No spinal tenderness. No costovertebral tenderness. Full range of motion. Skin: Warm, dry with normal turgor. Normal color with no rashes, no lesions, and no evidence of cellulitis. MS/ Extremity: Pulses equal, no cyanosis. Neurovascular intact. Full, normal range of motion. Neuro: Awake and alert, GCS 15, oriented to person, place, time, and situation. Cranial nerves II-XII grossly intact. Motor strength 5/5 in all extremities. Sensory grossly intact. Cerebellar exam normal. Normal gait. Psych: Awake, alert, with orientation to person, place and time. Behavior, mood, and affect are within normal limits. 19:47 ECG was reviewed by the Attending Physician. Vital Signs: 17:54 BP 141 / 91; Pulse 60; Resp 16 S; Temp 97.9(TE); Pulse Ox 100% on R/A; Weight 97.52 kg aa5 (R); Height 5 ft. 4 in. (R); 19:26 BP 123 / 73; Pulse 59; Resp 16; Pulse Ox 100% on R/A; jb4 20:30 BP 124 / 102; Pulse 78; Resp 16; Pulse Ox 100% on 2 lpm NC; jb4 17:54 Body Mass Index 36.90 (97.52 kg, 162.56 cm) aa5 Bradford Coma Score: 19:54 Eye Response: spontaneous(4). Motor Response: obeys commands(6). Verbal Response: [place] oriented(5). Total: 15. MDM: 17:45 Patient medically screened. pey[place] 19:54 Differential diagnosis: cluster headache, epidural hematoma, hypertensive headache, [place] hyponatremia, migraine, neoplasm, subarachnoid bleed, subdural hematoma, temporal arteritis, tension headache, trigeminal neuralgia, vasomotor headache. Data reviewed: vital signs, nurses notes, lab test result(s), EKG, radiologic studies, CT scan, plain films. Consideration of Admission/Observation Escalation of care including admission/observation considered. I considered the following discharge prescriptions or medication management in the emergency department Medications were administered in the Emergency Department. See MAR. Test considered but Not performed: MRI: NO MRI BRAIN. Care significantly affected by the following chronic conditions: Hypertension, OSTEOPOROSIS, MIGRAINE, GERD. 08/03 17:47 Order name: Basic Metabolic Panel; Complete Time: 20:55 [facility] 08/03 17:47 Order name: CBC with Diff; Complete Time: 20:55 [facility] 08/03 17:47 Order name: LFT's; Complete Time: 20:55 [facility] 08/03 17:47 Order name: Magnesium; Complete Time: 20:55 [facility] 08/03 17:47 Order name: NT PRO-BNP; Complete Time: 20:55 [facility] 08/03 17:47 Order name: PT-INR; Complete Time: 20:55 [facility] 08/03 17:47 Order name: Troponin HS; Complete Time: 20:55 [facility] 08/03 17:47 Order name: Urinalysis w/ reflexes; Complete Time: 21:17 [facility] 08/03 17:47 Order name: XRAY Chest (1 view); Complete Time: 19:06 [facility] 08/03 17:47 Order name: CT Head Brain wo Cont; Complete Time: 19:47 [facility] 08/03 17:47 Order name: EKG; Complete Time: 17:47 [facility] 08/03 17:47 Order name: Cardiac monitoring; Complete Time: 19:38 [facility] 08/03 17:47 Order name: EKG - Nurse/Tech; Complete Time: 19:38 [facility] 08/03 17:47 Order name: IV Saline Lock; Complete Time: 19:38 [facility] 08/03 17:47 Order name: Labs collected and sent; Complete Time: 19:38 [facility] 08/03 17:47 Order name: O2 Per Protocol; Complete Time: 19:38 [facility] 08/03 17:47 Order name: O2 Sat Monitoring; Complete Time: 19:38 [facility] 08/03 18:23 Order name: Oxygen: 2 LITERS; Complete Time: 20:14 [facility] EC:47 Rate is 64 beats/min. Rhythm is regular. QRS [place] is Normal. SC interval is normal. QRS [place] interval is normal. QT interval is normal. No Q waves. T waves are Normal. Clinical impression: NSR w/ Non-specific ST/T Changes and No evidence of ischemia. Interpreted by me. Reviewed by me. Administered Medications: 19:37 Drug: NS 0.9% IV 1000 ml Route: IV; Rate: 1 bolus; Site: right antecubital; lg3 19:37 Drug: Ondansetron IVP 4 mg Route: IVP; Site: right antecubital; lg3 19:37 Drug: diphenhydrAMINE IVP 50 mg Route: IVP; Site: right antecubital; lg3 19:37 Drug: metoCLOPramide IVP 10 mg Route: IVP; Site: right antecubital; lg3 19:37 Drug: Ketorolac IVP 30 mg Route: IVP; Site: right antecubital; lg3 Disposition Summary: 08/03/22 20:56 Discharge Ordered Location: Home [place] Problem: new pey[place] Symptoms: have improved pey[place] Condition: Stable pey[place] Diagnosis - Headache pey[place] - Nausea peyton Followup: pey[place] - With: Private Physician - When: 2 - 3 days - Reason: Recheck today's complaints, Continuance of care, Re-evaluation by your physician Followup: [place] - With: - When: 2 - 3 days - Reason: Recheck today's complaints, Re-evaluation by your physician Discharge Instructions: - Discharge Summary Sheet peyton - General Headache Without Cause peyton - Migraine Headache peyton - Nausea, Adult peyton - Migraine Headache, [id number] pey[place] - General Headache Without Cause, [id number] pey[place] Forms: - Medication Reconciliation Form peyton - Thank You Letter peyton - Antibiotic Education peyton - Prescription Opioid Use pey[place] Prescriptions: - Fioricet with Codeine 04-629-96-30 mg Oral capsule - take 2 capsule by ORAL route every 4 hours as needed for pain; do not exceed 6 pey[place] caps per day; 20 capsule; Refills: 0, Product Selection Permitted - Zofran 4 mg Oral Tablet - take 1 tablet by ORAL route every 12 hours As needed; 20 tablet; Refills: 0, pe[place] Product Selection Permitted Signatures: Dispatcher [employer] Ld Gupta MD MD cha Calderon, Audri, RN RN aa5 Kelley Velasquez RN RN lg3
[2022-08-03 21:13] LABS: Specific Gravity 1.013 (1.005-1.030); Urine Bilirubin NEGATIVE (Negative); Urine Blood Negative (Negative); Urine Clarity Clear (Clear); Urine Color Light-Yellow (Yellow); Urine Glucose NEGATIVE (Negative); Urine Protein NEGATIVE (Negative); Urine Urobilinogen Normal (Normal)
[2022-08-03 22:26] VITALS: TEMP 97.9; O2SAT 100
[2022-08-03 22:30] VITALS: BP 124/102
--- NOTE | 2022-08-04 07:15 | EKG ---
Test Date: 2022-08-03 Test Time: 19:41:01 [employer] Technician: CHRISTOPHER MEASUREMENT RESULTS: Intervals: Rate: 64 DE: 194 QRSD: 84 QT: 430 QTc: 443 [place]: P: 61 DE: 194 QRS: 37 T: 61 INTERPRETIVE STATEMENTS: Normal sinus rhythm Low voltage QRS Borderline ECG Compared to ECG 12/22/1994 09:38:00 Low QRS voltage now present Sinus bradycardia no longer present Right-axis deviation no longer present Electronically Signed On 08-04-22 07:13:56 CDT by Lazaro Chand
== END 2022-08-03 21:33 | disposition home or self-care (01) ==
LOC: ER 17:36
DX: R51.9 Headache, unspecified (principal); R11.0 Nausea; I10 Essential (primary) hypertension
CPT/HCPCS: 93005; 85025; 80048; 36415; 83735; 85610; 80076; 81003; 84484; 83880; 70450; 71045; 96375; 96374; 99285; J2765; J1200; J2405; J7030